=== PATIENT | female | born 1985 | race African-American/Black ===

== ENCOUNTER 2017-06-20 14:23 | Emergency (ER) | payer SELFPAY ==
[2017-06-20] MEDS ORDERED: NORMAL SALINE 1000 ML 1,000 ML IV PRN (15:32)
--- NOTE | 2017-06-20 15:33 | ER Document Report ---
ED Medical Screen (RME) - General Chief Complaint: Abdominal Pain Stated Complaint: BODY PAIN Time Seen by Provider: 06/20/17 14:39 Mode of Arrival: Wheelchair Information source: Patient TRAVEL OUTSIDE OF THE U.S. IN LAST 30 DAYS: No - HPI Patient complains to provider of: Abdominal Pain, low back pain, nausea and vomiting Notes: 06/20/17 15:32 Patient is a 31-year-old female presenting to the emergency room complaining of abdominal pain with lower back pain, states she was recently diagnosed with a urinary tract infection and completed a course of antibiotics, however missed several doses intermittently, she had some nausea and vomiting this morning as well Past Medical History Renal/ Medical History: Denies: Hx Peritoneal Dialysis Physical Exam - Vital signs Vitals: Temp Pulse Resp BP Pulse Ox 98 F 81 20 99/57 L 100 06/20/17 14:36 06/20/17 14:36 06/20/17 14:36 06/20/17 14:36 06/20/17 14:36 Course - Vital Signs Vital signs: Temp Pulse Resp BP Pulse Ox 98 F 81 20 99/57 L 100 06/20/17 14:36 06/20/17 14:36 06/20/17 14:36 06/20/17 14:36 06/20/17 14:36
--- NOTE | 2017-06-20 15:56 | ER Document Report ---
ED General - General Chief Complaint: Abdominal Pain Stated Complaint: BODY PAIN Time Seen by Provider: 06/20/17 14:39 Mode of Arrival: Medic Information source: Patient Notes: Patient presents to the emergency department with complaints of bilateral flank pain. Patient reports history of UTI approximately 1 month ago. She was treated with IV antibiotics and prescribed Cipro to go. Patient reports she did miss a few doses. She reports she felt better but this morning at work she started having pain again and vomited twice. She denies fever and diarrhea. Patient is requesting something to eat now. TRAVEL OUTSIDE OF THE U.S. IN LAST 30 DAYS: No - HPI Onset: This morning Onset/Duration: Sudden Quality of pain: Achy, Pressure Severity: Severe Pain Level: 4 Associated symptoms: Vomiting Exacerbated by: Denies Relieved by: Denies Similar symptoms previously: Yes Recently seen / treated by doctor: Yes Past Medical History - General Information source: Patient Last Menstrual Period: current - Social History Smoking Status: Current Every Day Smoker Cigarette use (# per day): Yes Chew tobacco use (# tins/day): No Frequency of alcohol use: Occasional Drug Abuse: None Occupation: [employer] Lives with: Family Family History: None Patient has suicidal ideation: No Patient has homicidal ideation: No - Medical History Medical History: Negative Renal/ Medical History: Denies: Hx Peritoneal Dialysis Past Surgical History: Reports: Hx Gynecologic Surgery - lt ovary removal, Hx Tonsillectomy - addenoids Review of Systems - Review of Systems Notes: Review HPI for review of systems., All other systems negative Physical Exam - Vital signs Vitals: Temp Pulse Resp BP Pulse Ox 98 F 81 20 99/57 L 100 06/20/17 14:36 06/20/17 14:36 06/20/17 14:36 06/20/17 14:36 06/20/17 14:36 - Notes Notes: PHYSICAL EXAMINATION: GENERAL: nontoxic looking HEAD: Atraumatic, normocephalic. EYES: Pupils equal round extraocular movements intact, sclera anicteric, conjunctiva are normal. ENT: nares patent, Moist mucous membranes. NECK: Normal range of motion, supple without lymphadenopathy LUNGS: CTAB and equal. No wheezes rales or rhonchi. HEART: Regular rate and rhythm without murmurs ABDOMEN: Soft, no tenderness. No guarding, no rebound BACK: Bilateral CVA tenderness EXTREMITIES: Normal range of motion, no pitting edema. No cyanosis. NEUROLOGICAL: Cranial nerves grossly intact. Normal sensory/motor exams. PSYCH: Normal mood, normal affect. SKIN: Warm, Dry, normal turgor, no rashes or lesions noted Course - Re-evaluation Re-evalutation: 06/20/17 17:08 Review of medical records notes the patient did have a visit for pyelonephritis on May 20. Her white count at that time was 24.4 today her wbc are 14.1. Will treat with toradol, iv rocephin, discharge with septra. Pt to be instructed on importance of fu for recheck and take all antibiotics. 06/20/17 17:49 Patient reports pain is gone but feeling little nauseated Zofran ordered - Vital Signs Vital signs: Temp Pulse Resp BP Pulse Ox 98 F 81 20 116/61 100 06/20/17 14:36 06/20/17 14:36 06/20/17 14:36 06/20/17 15:38 06/20/17 14:36 - Laboratory Result Diagrams: 06/20/17 15:40 06/20/17 15:40 Laboratory results interpreted by me: 06/20/17 06/20/17 06/20/17 15:40 15:40 15:45 WBC 14.1 H RDW 15.9 H Seg Neuts % (Manual) 93 H Lymphocytes % (Manual) 2 L Abs Neuts (Manual) 13.1 H Abs Lymphs (Manual) 0.3 L Chloride 108 H Urine Blood MODERATE H Urine Ascorbic Acid 20 H Discharge - Discharge Clinical Impression: Bilateral flank pain, Pyelonephritis Condition: Stable Disposition: HOME, SELF-CARE Instructions: Antinausea Medication ([facility]), Intravenous (IV) Fluids ([facility]), Pyelonephritis ([facility]), Rocephin ([facility]), Toradol Injection ([facility]), Trimethoprim- Sulfa ([facility]) Additional Instructions: *You have been evaluated for bilateral flank pain, history of pyelonephritis *Take medication as prescribed *Push fluids *Follow up with your primary care provider within one week *Monitor your temperature, take tylenol as indicated for pain *Return to ED for worsening condition, changes, needs, fever, increased pain, concerns Prescriptions: Sulfamethoxazole/Trimethoprim [Bactrim Ds Tablet] 1 each PO BID #10 tablet Forms: Return to Work
[2017-06-20 16:15] LABS: ALANINE AMINOTRANSFERASE 15 U/L (9-52); ALKALINE PHOSPHATASE 66 U/L (38-126); ANION GAP 10 (5-19); ASPARTATE AMINO TRANSFERASE 17 U/L (14-36); BILIRUBIN,DIRECT 0.3 mg/dL (0.0-0.4); BILIRUBIN,TOTAL 0.5 mg/dL (0.2-1.3); BLOOD UREA NITROGEN 11 mg/dL (7-20); CALCIUM 9.4 mg/dL (8.4-10.2); CARBON DIOXIDE 23 mmol/L (22-30); CHLORIDE 108 mmol/L (98-107); CREATININE RESULT 0.59 mg/dL (0.52-1.25); GLUCOSE 83 mg/dL (75-110); LIPASE 71.2 U/L (23-300); POTASSIUM 4.1 mmol/L (3.6-5.0); SODIUM 140.6 mmol/L (137-145); TOTAL PROTEIN 7.4 g/dL (6.3-8.2)
[2017-06-20 16:28] LABS: HEMATOCRIT 38.5 % (36.0-47.0); HEMOGLOBIN 12.6 g/dL (12.0-15.5); HGB HCT DIFFERENCE -0.7; MEAN CORPUSCULAR HEMOGLOBIN 27.3 pg (27.0-33.4); MEAN CORPUSCULAR HGB CONC 32.6 g/dL (32.0-36.0); MEAN CORPUSCULAR VOLUME 84 fl (80-97); RED BLOOD COUNT 4.61 10^6/uL (3.72-5.28); RED CELL DISTRIBUTION WIDTH 15.9 % (11.5-14.0); WHITE BLOOD COUNT 14.1 10^3/uL (4.0-10.5)
[2017-06-20 16:33] LABS: BASOPHILS % (MANUAL) 0 % (0-2); EOSINOPHILS % (MANUAL) 0 % (0-6); LYMPHOCYTES % (MANUAL) 2 % (13-45); TOTAL CELLS COUNTED 100
[2017-06-20 16:34] LABS: OVALOCYTES SLIGHT; POIKILOCYTOSIS SLIGHT; TARGET CELLS SLIGHT
[2017-06-20 16:35] LABS: ANISOCYTOSIS SLIGHT; HYPOCHROMASIA SLIGHT
[2017-06-20 16:50] LABS: APPEARANCE,URINE CLEAR; BILIRUBIN,URINE NEGATIVE (NEGATIVE); GLUCOSE, URINE NEGATIVE (NEGATIVE); KETONES,URINE NEGATIVE (NEGATIVE); LEUKOCYTE ESTERASE,URINE NEGATIVE (NEGATIVE); NITRITE,URINE NEGATIVE (NEGATIVE); PROTEIN,URINE NEGATIVE (NEGATIVE); URINE SPECIFIC GRAVITY 1.023; UROBILINOGEN,URINE NEGATIVE mg/dL (<2.0)
[2017-06-20] MEDS ORDERED: KETOROLAC TROMETHAMINE INJ/PF 30 MG/1 ML SDV IV ONE (17:05)
[2017-06-20] MEDS ORDERED: CEFTRIAXONE INJ 1000 MG VIAL IV ONE (17:05)
[2017-06-20] MEDS ORDERED: ONDANSETRON HCL INJ/PF 4 MG/2 ML SDV IV ONE (17:50)
[2017-06-20] MEDS ORDERED: ONDANSETRON ODT 4 MG TAB (6 TAB/DSPK) PO PRN (17:52)
[2017-06-20 18:25] VITALS: BP 112/64
== END 2017-06-20 18:20 | disposition home or self-care (01) ==
LOC: ER 14:23
DX: N12 Tubulo-interstitial nephritis, not specified as acute or chronic (principal); R10.9 Unspecified abdominal pain; R52 Pain, unspecified; F17.210 Nicotine dependence, cigarettes, uncomplicated
CPT/HCPCS: 99284; 96375; 96365; 36415; 87040; 87086; 83690; 84703; 85025; 80053; 81001; 83605; J1885; J0696; J2405; J7030

== ENCOUNTER 2017-08-28 12:44 | Emergency (ER) | payer MEDICAID ==
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
[2017-08-28] MEDS ORDERED: HYDROCODONE/ACETAMINOPHEN 5-325 MG TABLET PO ONE (13:56)
[2017-08-28] MEDS ORDERED: CYCLOBENZAPRINE HCL 10 MG TABLET PO ONE (13:56)
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
[2017-08-28 16:36] VITALS: BP 120/65
== END 2017-08-28 16:36 | disposition home or self-care (01) ==
LOC: ER 12:44
DX: O30.001 Twin pregnancy, unspecified number of placenta and unspecified number of amniotic sacs, first trimester (principal); S09.90XA Unspecified injury of head, initial encounter; R51 Headache; Y04.0XXA Assault by unarmed brawl or fight, initial encounter; Z3A.10 10 weeks gestation of pregnancy
CPT/HCPCS: 99284; 70150; 76801; J3490

== ENCOUNTER 2017-10-20 16:09 | Emergency (ER) | payer MEDICAID ==
--- NOTE | 2017-10-20 19:24 | ER Document Report ---
ED General - General Chief Complaint: Abdominal Pain Stated Complaint: ABDOMINAL PAIN/POST Time Seen by Provider: 10/20/17 19:23 Mode of Arrival: Ambulatory Information source: Patient Notes: This is a 32-year-old female who is 4 para 2 history of 1 miscarriage, 18 weeks who initiated a termination of yesterday at the [facility] in [place]. The nurse from the clinic states that the patient had a cervical prep with dilatation. She was supposed to stay overnight for a D&C today. The patient apparently had left last night with the plans of coming back this morning and the patient states she could not get a ride. I called the clinic today in the have confirmed that they are not back in the office until Thursday. TRAVEL OUTSIDE OF THE U.S. IN LAST 30 DAYS: No - HPI Onset: Just prior to arrival Onset/Duration: Gradual Quality of pain: No pain Severity: None Pain Level: Denies Associated symptoms: denies: Chest pain, Fever, Nausea, Vomiting, Shortness of breath Exacerbated by: Denies Relieved by: Denies Similar symptoms previously: Yes Recently seen / treated by doctor: Yes - Related Data Allergies/Adverse Reactions: Penicillins Allergy (Verified 10/20/17 16:12) Past Medical History - General Information source: Patient - Social History Smoking Status: Former Smoker Cigarette use (# per day): No Chew tobacco use (# tins/day): No Frequency of alcohol use: None Drug Abuse: None Lives with: Family Family History: None Patient has suicidal ideation: No Patient has homicidal ideation: No - Medical History Medical History: Negative Renal/ Medical History: Denies: Hx Peritoneal Dialysis Past Surgical History: Reports: Hx Gynecologic Surgery - lt ovary removal, Hx Tonsillectomy - addenoids Review of Systems - Review of Systems Constitutional: denies: Chills, Fever EENT: No symptoms reported Cardiovascular: No symptoms reported Respiratory: No symptoms reported Gastrointestinal: No symptoms reported Genitourinary: No symptoms reported Female Genitourinary: See HPI Musculoskeletal: No symptoms reported Skin: No symptoms reported Hematologic/Lymphatic: No symptoms reported Neurological/Psychological: No symptoms reported Physical Exam - Vital signs Vitals: Temp Pulse Resp BP Pulse Ox 98.4 F 77 18 114/60 98 10/20/17 16:21 10/20/17 16:21 10/20/17 16:21 10/20/17 16:21 10/20/17 16:21 Notes: Physical exam: GENERAL: 32-year-old female, alert and oriented 3, no acute distress HEAD: Atraumatic, normocephalic. EYES: Pupils equal round and reactive to light, extraocular movements intact, sclera anicteric, conjunctiva are normal. ENT: TMs normal, nares patent, oropharynx clear without exudates. Moist mucous membranes. NECK: Normal range of motion, supple without obvious mass or JVD. LUNGS: Breath sounds clear to auscultation bilaterally and equal. No wheezes rales or rhonchi. HEART: Regular rate and rhythm without murmurs, rubs or gallops. ABDOMEN: Soft, normoactive bowel sounds. No tenderness to palpation. No guarding, no rebound. No masses appreciated. Pelvic exam: Performed in the presence of a software support analyst (Fabi valero nurse): External genitalia normal, scant discharge in the vault which is slightly bloody. The office is closed, there is no significant adnexal mass, uterus consistent with 18 weeks gestation. EXTREMITIES: Normal range of motion, no pitting or edema. No clubbing or cyanosis. NEUROLOGICAL: Cranial nerves II through XII grossly intact. Normal speech, moving all extremities. PSYCH: Normal mood, normal affect. SKIN: Warm, Dry, normal turgor, no rashes or lesions noted. Course - Re-evaluation Re-evalutation: 10/20/17 23:59 I discussed case with the nurse at the [facility] in [facility] ([phone]). She confirmed that the patient was there to days ago and was supposed to be there this morning for a termination of . She stated that the next possible time a doctor can see her as Thursday. She was able to have the medical i d sales (Dr. Arthur) call me. He explained the process which is: The first day they put in 4 Laminarium for cervical dilatation and these are helped by strings. And then vaginal packing is put in for any discharge. The patient was supposed to stay in [place] that night and return to the clinic for a D and E after the cervix was dilated. Dr. Arthur stated that they make patients sign papers that they will stay in a hotel and that was the case with Ms. Fisher. Ms. Fisher stated that she had to leave because her ride needed to do something and was not able to bring her back to the clinic this morning. The patient was referred to the emergency room after calling the clinic. Dr. Arthur recommended removing the 4 laminaria and the vaginal packing. He stated that this usually does not break the membranes in the fetus would still be viable. Just before the pelvic exam, the patient had actually removed the laminaria and packing herself. The vaginal exam revealed some scant discharge but did not reveal any further packing or laminaria. An ultrasound was done which showed viable twin gestations with plenty of fluid around the babies. I discussed the case with the OB doctor online publisher here (Dr. Stefan Enriquez) who stated that given this presentation, it is likely that the babies are still viable and that the water has not broken. He also informed me that they do not do 18 week gestation D & Es here at this hospital. He also stated that he does not believe anyone in [place] did. In any event, there is no evidence of endometritis or ruptured membranes at this point. He was willing to see the patient in clinic I then called back Dr. Arthur ([phone]) and discussed case with him. He agreed that it sounded like the fetuses were still viable and that the membranes did not rupture at this point (given the presentation and findings). He stated that if the patient was still interested in a termination of , she would have to follow-up with [facility] which is the funding agency that is paying for the termination. He stated that the patient should call this agency before calling back to [facility] in [place]. He did state that she had approximately 1 week left for termination in [place]. I discussed this issue with the patient at length in the room and she appeared to understand. At the time of discharge, I have instructed the patient at the bedside with regards to return precautions and follow-up recommendations. The opportunity for questions was given. The patient has verbalized understanding of these instructions and the need for follow-up. - Vital Signs Vital signs: Temp Pulse Resp BP Pulse Ox 98.6 F 76 18 120/68 98 10/20/17 23:38 10/20/17 23:38 10/20/17 23:38 10/20/17 23:38 10/20/17 23:38 - Diagnostic Test Radiology reviewed: Image reviewed, Reports reviewed - OB shows viable twin pregnancies Critical Care Note - Critical Care Note Total time excluding time spent on procedures (mins): 60 Discharge - Discharge Clinical Impression: 18 weeks /twins Condition: Stable Disposition: HOME, SELF-CARE Additional Instructions: As discussed, the ultrasound showed viable twin pregnancies. I did speak to Dr. Arthur who is the OB medical i d sales at the [facility] He recommended to follow-up with [facility] first thing in the morning for referral back to the clinic. If you still are looking for a termination of , you legally have only one more week in [place]. Return to the emergency room for worsening pain, bleeding or fever. You could always follow-up with the woman's health clinic here at this hospital , but they do not do with late stage termination of pregnancies here. Continue current medicines.
[2017-10-20 21:23] LABS: BACTERIA (WET MOUNT) 4+ BACTERIA SEEN; RBCS (WET MOUNT) RARE RBCS SEEN; T.VAGINALIS (WET MOUNT) NO TRICHOMONAS SEEN; WBCS (WET MOUNT) 3+ WBCS SEEN; YEAST (WET MOUNT) YEAST SEEN
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
[2017-10-20 23:39] VITALS: BP 120/68
== END 2017-10-20 23:30 | disposition home or self-care (01) ==
LOC: ER 16:09
DX: O30.002 Twin pregnancy, unspecified number of placenta and unspecified number of amniotic sacs, second trimester (principal); Z3A.18 18 weeks gestation of pregnancy
CPT/HCPCS: 76810; 76815; 87210; 99285

== ENCOUNTER 2017-10-30 09:36 | Emergency (ER) | payer MEDICAID ==
--- NOTE | 2017-10-30 11:39 | ER Document Report ---
ED General - General Chief Complaint: Nausea/Vomiting/Diarrhea Stated Complaint: BACK/STOMACH PAIN Time Seen by Provider: 10/30/17 11:27 Mode of Arrival: Ambulatory Information source: Patient Notes: 32-year-old female who is 20 weeks presents with complaints of fever sore throat body aches of 2 day duration. pt notes that she has been having non productive cough. daughter has similar uri symptoms TRAVEL OUTSIDE OF THE [place] IN LAST 30 DAYS: No - HPI Onset: Other Onset/Duration: Persistent Quality of pain: Achy Severity: Mild Pain Level: 1 Associated symptoms: Body/muscle aches, Chills, Nonproductive cough, Fever, Nausea, Sore throat Exacerbated by: Denies Relieved by: Denies Similar symptoms previously: No Recently seen / treated by doctor: Yes - Related Data Allergies/Adverse Reactions: Penicillins Allergy (Verified 10/30/17 09:37) Past Medical History - Social History Smoking Status: Never Smoker Cigarette use (# per day): No Chew tobacco use (# tins/day): No Smoking Education Provided: No Frequency of alcohol use: None Drug Abuse: None Family History: None Patient has suicidal ideation: No Patient has homicidal ideation: No Renal/ Medical History: Denies: Hx Peritoneal Dialysis Past Surgical History: Reports: Hx Gynecologic Surgery - L ovary removal, Hx Tonsillectomy - addenoids Review of Systems - Review of Systems Notes: REVIEW OF SYSTEMS: CONSTITUTIONAL : Admits fevers chills EENT: Sore throat CARDIOVASCULAR: Denies chest pain. Denies palpitations or racing or irregular heart beat. Denies ankle edema. RESPIRATORY: Denies cough, cold, or chest congestion. Denies shortness of breath, difficulty breathing, or wheezing. GASTROINTESTINAL: Admits to nausea vomiting GENITOURINARY: Denies difficulty urinating, painful urination, burning, frequency, blood in urine, or discharge. FEMALE GENITOURINARY: Denies vaginal bleeding, heavy or abnormal periods, irregular periods. Denies vaginal discharge or odor. MUSCULOSKELETAL: Admits body aches SKIN: Denies rash, lesions or sores. HEMATOLOGIC : Denies easy bruising or bleeding. LYMPHATIC: Denies swollen, enlarged glands. NEUROLOGICAL: Denies confusion or altered mental status. Denies passing out or loss of consciousness. Denies dizziness or lightheadedness. Denies headache. Denies weakness or paralysis or loss of use of either side. Denies problems with gait or speech. Denies sensory loss, numbness, or tingling. Denies seizures. PSYCHIATRIC: Denies anxiety or stress. Denies depression, suicidal ideation, or homicidal ideation. ALL OTHER SYSTEMS REVIEWED AND NEGATIVE. PHYSICAL EXAMINATION: GENERAL: Well-appearing, well-nourished and in no acute distress. HEAD: Atraumatic, normocephalic. EYES: Pupils equal round and reactive to light, extraocular movements intact, conjunctiva are normal. ENT: Nares patent, oropharynx clear without exudates. Moist mucous membranes. NECK: Normal range of motion, supple without lymphadenopathy LUNGS: Breath sounds clear to auscultation bilaterally and equal. No wheezes rales or rhonchi. Dry cough HEART: Tachycardic upon arrival ABDOMEN: Soft, nontender, nondistended abdomen. No guarding, no rebound. No masses appreciated. Female : deferred Musculoskeletal: Normal range of motion, no pitting or edema. No cyanosis. NEUROLOGICAL: Cranial nerves grossly intact. Normal speech, normal gait. Normal sensory, motor exams PSYCH: Normal mood, normal affect. SKIN: Warm, Dry, normal turgor, no rashes or lesions noted. Dictation was performed using [employer] voice recognition software Physical Exam - Vital signs Vitals: Temp Pulse Resp BP Pulse Ox 98.7 F 127 H 20 134/72 H 97 10/30/17 09:41 10/30/17 09:41 10/30/17 09:41 10/30/17 09:41 10/30/17 09:41 Course - Re-evaluation Re-evalutation: 10/30/17 11:38 Patient's presentation is consistent with influenza, I did review previous chart where there was an attempt for miscarriage but the patient did not go through with it, she is denying any abdominal pain to me at this time, she does not have any signs of endometriosis, patient's symptoms are all URI based, at this time we do not have the capabilities to test for the flu, chest x -ray urinalysis pending I will treat the patient with Tamiflu risks and benefits have been explained 10/30/17 14:59 Patient's urinalysis did note some ketones she was noted to be slightly tachycardic upon arrival patient was given IV fluids heart rate is now 100, pt feels better After performing a Medical Screening Examination, I estimate there is LOW risk for ACUTE APPENDICITIS, BOWEL OBSTRUCTION, ACUTE CHOLECYSTITIS, PERFORATED DIVERTICULITIS, INCARCERATED HERNIA, PANCREATITIS, PELVIC INFLAMMATORY DISEASE, PERFORATED ULCER, ECTOPIC , or TUBO-OVARIAN ABSCESS, thus I consider the discharge disposition reasonable. Also, there is no evidence or peritonitis , sepsis, or toxicity. I have reevaluated this patient multiple times and no significant life threatening changes are noted. The patient and I have discussed the diagnosis and risks, and we agree with discharging home with close follow-up with the understanding that symptoms and presentations can change. We also discussed returning to the Emergency Department immediately if new or worsening symptoms occur. We have discussed the symptoms which are most concerning (e.g., bloody stool, fever, changing or worsening pain, vomiting) that necessitate immediate return. 10/30/17 15:07 - Vital Signs Vital signs: Temp Pulse Resp BP Pulse Ox 98.7 F 127 H 20 134/72 H 97 10/30/17 09:41 10/30/17 09:41 10/30/17 09:41 10/30/17 09:41 10/30/17 09:41 - Laboratory Laboratory results interpreted by me: 10/30/17 11:45 Urine Protein 100 H Urine Ketones 80 H Urine Urobilinogen 4.0 H Ur Leukocyte Esterase SMALL H Discharge - Discharge Clinical Impression: Nausea/vomiting in , Flu-like symptoms, Dehydration during Condition: Stable Disposition: HOME, SELF-CARE Instructions: Vomiting ([facility]) Additional Instructions: Follow up with your physician tomorrow for further care or return to the ED IMMEDIATELY if symptoms worsen or new concerns occur. If you cannot afford to follow up with your primary care physician a list of low cost clinics have been provided at the end of your discharge papers as well. Prescriptions: Metoclopramide HCl [Reglan 10 mg Tablet] 1 - 2 tab PO Q6 #25 tablet Oseltamivir Phosphate [Tamiflu 75 mg Capsule] 75 mg PO BID #10 capsule
[2017-10-30 12:03] LABS: APPEARANCE,URINE SLIGHTLY-CLOUDY; BILIRUBIN,URINE NEGATIVE (NEGATIVE); COLOR,URINE AMBER; GLUCOSE, URINE NEGATIVE (NEGATIVE); KETONES,URINE 80 mg/dL (NEGATIVE); LEUKOCYTE ESTERASE,URINE SMALL (NEGATIVE); NITRITE,URINE NEGATIVE (NEGATIVE); PROTEIN,URINE 100 mg/dL (NEGATIVE); URINE SPECIFIC GRAVITY 1.024
[2017-10-30] MEDS ORDERED: NORMAL SALINE 1000 ML 1,000 ML IV ONE (12:07)
--- NOTE | 2017-10-30 12:23 | RADIOLOGY REPORT (SQ) ---
EXAM DESCRIPTION: CHEST PA/LAT COMPLETED DATE/TIME: 10/30/2017 12:05 pm REASON FOR STUDY: fever cough COMPARISON: None. EXAM PARAMETERS: NUMBER OF VIEWS: two views TECHNIQUE: Digital Frontal and Lateral radiographic views of the chest acquired. RADIATION DOSE: NA LIMITATIONS: none FINDINGS: LUNGS AND PLEURA: No opacities, masses or pneumothorax. No pleural effusion. MEDIASTINUM AND HILAR STRUCTURES: No masses or contour abnormalities. HEART AND VASCULAR STRUCTURES: Heart normal size. No evidence for failure. BONES: No acute findings. HARDWARE: None in the chest. OTHER: No other significant finding. IMPRESSION: NO SIGNIFICANT RADIOGRAPHIC FINDING IN THE CHEST. TECHNICAL DOCUMENTATION: JOB ID: [id number] [employer]- All Rights Reserved
[2017-10-30 15:06] VITALS: BP 126/67
== END 2017-10-30 15:08 | disposition home or self-care (01) ==
LOC: ER 09:36
DX: O26.892 Other specified pregnancy related conditions, second trimester (principal); E86.0 Dehydration; R19.7 Diarrhea, unspecified; R50.9 Fever, unspecified; O21.8 Other vomiting complicating pregnancy; Z3A.20 20 weeks gestation of pregnancy; Z88.0 Allergy status to penicillin
CPT/HCPCS: 99283; 96360; 81001; 71046; J7030

== ENCOUNTER 2018-02-02 15:35 | Outpatient (CLI) | payer MEDICAID ==
[~2018-02-02 15:35] MED LIST: FERRIC CARBOXYMALTOSE 750 MG in NORMAL SALINE 250 ML IV PRN; NORMAL SALINE 250 ML IV PRN
[2018-02-02 16:18] VITALS: BP 118/71
== END 2018-02-02 16:56 | disposition home or self-care (01) ==
LOC: II 15:35 → 5TH 15:38 → II 16:56
PROVIDERS: ATTEND Internal Medicine
PROC: 3E033GC Introduction of Other Therapeutic Substance into Peripheral Vein, Percutaneous Approach (ICD-10-PCS; principal; 2018-02-02)
DX: D50.8 Other iron deficiency anemias (principal); K90.9 Intestinal malabsorption, unspecified
CPT/HCPCS: 96367; J7050; J1439; 96374

== ENCOUNTER 2018-02-10 16:27 | Inpatient (IN) | payer MEDICAID ==
[2018-02-10 17:10] LABS: APPEARANCE,URINE CLEAR; BILIRUBIN,URINE NEGATIVE (NEGATIVE); COLOR,URINE YELLOW; GLUCOSE, URINE NEGATIVE (NEGATIVE); KETONES,URINE NEGATIVE (NEGATIVE); LEUKOCYTE ESTERASE,URINE SMALL (NEGATIVE); NITRITE,URINE NEGATIVE (NEGATIVE); PROTEIN,URINE NEGATIVE (NEGATIVE); URINE SPECIFIC GRAVITY 1.011; UROBILINOGEN,URINE NEGATIVE mg/dL (<2.0)
[2018-02-10 17:35] LABS: URINE AMPHETAMINES SCREEN NEGATIVE; URINE BARBITURATES SCREEN NEGATIVE; URINE BENZODIAZEPINES SCREEN NEGATIVE; URINE COCAINE SCREEN NEGATIVE; URINE MARIJUANA (THC) SCREEN NEGATIVE; URINE METHADONE SCREEN NEGATIVE; URINE PHENCYCLIDINE SCREEN NEGATIVE
[2018-02-10 18:45] LABS: CHLAM PCR NOT DETECTED (NOT DETECT); GON PCR NOT DETECTED (NOT DETECT)
--- NOTE | 2018-02-10 19:33 | RADIOLOGY REPORT (SQ) ---
EXAM DESCRIPTION: U/S PROFILE W/O STRESS COMPLETED DATE/TIME: 02/10/2018 7:17 pm REASON FOR STUDY: nonreactive nst/twin gestation with demised baby B 34 weeks 2 days COMPARISON: 10/20/2017 TECHNIQUE: Limited wang-scale realtime and static images of the fetus to measure specified parameter s. LIMITATIONS: None. FINDINGS: HEART RATE: Fetus A: 157 Beats per minute. JONNY: Normal. BREATHING MOVEMENT: 2 points. MOVEMENT: 2 points. POSTURE AND TONE: 2 points. QUALITATIVE JONNY: 2 points. OTHER: No other significant finding. IMPRESSION: BIOPHYSICAL PROFILE: 04/28 for fetus A. demise of fetus B. measurements of fetus B suggest gestation of 27 weeks 1 day. Trimester of : Third - 28 weeks to delivery COMMENT: BREATHING MOVEMENTS: 2 POINTS: PRESENT 0 POINTS: ABSENT MOTION: 2 POINTS: PRESENT 0 POINTS: ABSENT TONE: 2 POINTS: PRESENT 0 POINTS: ABSENT AMNIOTIC FLUID VOLUME: 2 POINTS: LARGEST POCKET GREATER THAN 2 CM DEPTH. 0 POINTS: NO POCKET OF 2 CM. TECHNICAL DOCUMENTATION: JOB ID: [id number] [employer]- All Rights Reserved Reading location - IP/workstation name: [email or web address]
[2018-02-10] MEDS ORDERED: CITRIC ACID/SODIUM CITRATE ORAL SOLN 15 ML UDCUP ONE (20:01)
[2018-02-10] MEDS ORDERED: CEFAZOLIN 1 GM/D5W RTU 2 GM/100 ML RTUPB IV ONE (20:01)
[2018-02-10] MEDS ORDERED: MISOPROSTOL 0.2 MG TABLET ONE (20:06)
[2018-02-10] MEDS ORDERED: OXYTOCIN 10 UNIT/ML VIAL ONE (20:17)
[2018-02-10] MEDS ORDERED: FENTANYL CITRATE INJ/PF 100 MCG/2 ML AMPUL ONE ×3 (20:17→22:08)
[2018-02-10] MEDS ORDERED: EPHEDRINE SULFATE INJ 50 MG/1 ML AMPULE ONE (20:17)
[2018-02-10] MEDS ORDERED: ONDANSETRON HCL INJ/PF 4 MG/2 ML SDV ONE (20:17)
[2018-02-10] MEDS ORDERED: OXYTOCIN/NORMAL SALINE 20 UNIT/1,000 ML RTUINJ ONE (20:17)
[2018-02-10] MEDS ORDERED: MIDAZOLAM 2 MG/2 ML INJ ONE (20:17)
--- NOTE | 2018-02-10 20:24 | Admission Physical ---
Datetime Report Generated by CPN: 02/10/2018 20:24 CURRENT ADMISSION Chief Complaint: Sent from OB Office for Evaluation and Treatment - Please Specify Indication for Induction: Not Applicable Admit Impression : Obstetrical Complication Admit Plan: Observation/Evaluation ALLERGIES Medication Allergies: Yes Medication Allergies: Penicillins (02/10/2018) Latex: No Latex Allergies Food Allergies: N/A Environmental Allergies: N/A OBSTETRICAL HISTORY EDC: 03/22/2018 00:00 : 7 Para: 2 Term: 2 : 0 SAB: 2 IAB: 2 Ectopic: 0 Livin Cesareans: 0 VBACs: 0 Multiple Births: 0 Gestational Diabetes: No Rh Sensitization: No Incompetent Cervix: No COLE: No Infertility: No ART Treatment: No Uterine Anomaly: No IUGR: No Hx Previous C/S: No Macrosomia: No Hx Loss/Stillborn: No PIH: No Hx : Yes Placenta Previa/Abruption: No Depression/PP Depression: No PTL/PROM: No Post Hemorrhage: No Current Procedures: Ultrasound; NST; BPP Obstetrical History Comments: G1- SAB at 12 wks G2- 40 wk baby boy G3- EAB at 10 wks G4- EAB at 10 wks G5- 39.1 wk baby girl G6- SAB G7- Current pregancy with twins (Twin B demise) SEE RECORDS Alcohol: Yes Advised to Stop: No Alcohol Comments: Around 7 weeks. Marijuana : No Cocaine: No Other Illicit Drugs: No Cigarettes: Former Smoker. [id number] Cigarette Frequency: 5 - 10 per day Advised to Stop: Yes MEDICAL HISTORY Diabetes: No Blood Transfusion: No Pulmonary Disease (Asthma, TB): No Breast Disease: No Hypertension: No Window Shade Cloth Sewer Surgery: No Heart Disease: No Hosp/Surgery: Yes Autoimmune Disorder: No Anesthetic Complications: No Kidney Disease: No Abnormal Pap Smear: No Neuro/Epilepsy: No Psychiatric Disorders: No Other Medical Diseases: No Hepatitis/Liver Disease: No Significant Family History: No Varicosities/Phlebitis: No Trauma/Violence : No Thyroid Dysfunction: No Medical History Comments: Ovary removal - 2004 INFECTIOUS HISTORY Gonorrhea: No Genital Herpes: No Chlamydia: Yes Tuberculosis: No Syphilis: No Hepatitis: No HIV/AIDS Exposure: No Rash or Viral Illness: No HPV: No Infectious History Comments: Chlamydia 2014 PHYSICAL EXAM General: Normal HEENT: Normal Neurologic: Normal Thyroid: Normal Heart: Normal Lungs: Normal Breast: Deferred Back: Normal Abdomen: Normal Genitourinary Exam: Normal Extremities: Normal DTRs: Normal Pelvic Type: Adequate FETUS A EGA: 34.2 Admit Comment: pt is 34 weeks and 2 days with twins. one infant is not viable since last week. Pt had nonreactive NST and was sent to L_D for evaluation. She has a class two strip and a BPP was reported as an 8 but the tech said she was really stretching the criteria for this value. I discussed this with the pt and advised her I feel delivery is indicated because of a non reassurant evaluation and the loss of one twin prior. I recommend a for delivery as the best course of action given the totality of the situation. Pt wanted to go home but I advised her I could not keep her against her will but also did not recommend she leave. She has consented to a delivery. PLANS FOR LABOR AND DELIVERY Labor and Delivery: Other, Specify Pain Management: Natural; Medications; Epidural Other Pain Management Plans: Pt. unsure of pain management plans Feeding Preference: Both Circumcision: N/A INFORMED CONSENT Signature: with User ID: [email or web address]
[2018-02-10] MEDS ORDERED: PROPOFOL INJ 200 MG/20 ML VIAL IV ONE (20:29)
[2018-02-10 20:38] LABS: HEMATOCRIT 32.3 % (36.0-47.0); HEMOGLOBIN 10.2 g/dL (12.0-15.5); MEAN CORPUSCULAR HEMOGLOBIN 25.9 pg (27.0-33.4); MEAN CORPUSCULAR HGB CONC 31.5 g/dL (32.0-36.0); MEAN CORPUSCULAR VOLUME 82 fl (80-97); PLATELET COUNT 230 10^3/uL (150-450); RED BLOOD COUNT 3.94 10^6/uL (3.72-5.28); RED CELL DISTRIBUTION WIDTH 18.4 % (11.5-14.0); WHITE BLOOD COUNT 17.6 10^3/uL (4.0-10.5)
[2018-02-10 20:48] LABS: PROTHROMBIN TIME 12.6 SEC (11.4-15.4)
[2018-02-10 20:49] LABS: PARTIAL THROMBOPLASTIN TIME 31.5 SEC (23.5-35.8)
[2018-02-10 20:51] LABS: ABSOLUTE LYMPHOCYTES# (MANUAL) 0.7 10^3/uL (0.5-4.7); ABSOLUTE MONOCYTES # (MANUAL) 2.5 10^3/uL (0.1-1.4); ABSOLUTE NEUTROPHILS# (MANUAL) 14.3 10^3/uL (1.7-8.2); BASOPHILS % (MANUAL) 0 % (0-2); EOSINOPHILS % (MANUAL) 1 % (0-6); LYMPHOCYTES % (MANUAL) 4 % (13-45); MONOCYTES % (MANUAL) 14 % (3-13); SEGMENTED NEUTROPHILS % (MAN) 81 % (42-78); TOTAL CELLS COUNTED 100
[2018-02-10 20:52] LABS: ANISOCYTOSIS 1+; HYPOCHROMASIA SLIGHT; OVALOCYTES SLIGHT; PLATELET COMMENT ADEQUATE; POIKILOCYTOSIS SLIGHT; TOXIC GRANULATION SLIGHT
[2018-02-10] MEDS ORDERED: CLINDAMYCIN 900 MG/D5W RTU 50 ML IV ONE (20:54)
[2018-02-10] MEDS ORDERED: GENTAMICIN SULFATE INJ 80 MG/2 ML VIAL ONE (20:54)
[2018-02-10] MEDS ORDERED: TETRACAINE HCL/PF 20MG/2ML AMPULE (SPINAL) ONE (20:59)
[2018-02-10] MEDS ORDERED: LIDOCAINE 2% INJ-PF (20 MG/ML) 10 ML AMPUL ONE (21:12)
[2018-02-10] MEDS ORDERED: FENTANYL CITRATE INJ/PF 100 MCG/2 ML AMPUL IV PRN ×3 (21:29)
[2018-02-10] MEDS ORDERED: DIPHENHYDRAMINE HCL 50 MG/ML VIAL IV PRN (21:29)
[2018-02-10] MEDS ORDERED: NALBUPHINE HCL INJ 10 MG/1 ML AMPULE IM ONE (21:29)
[2018-02-10] MEDS ORDERED: MEPERIDINE HCL/PF INJ 25 MG/1 ML DISP.SYRIN IV PRN (21:29)
[2018-02-10] MEDS ORDERED: PROMETHAZINE HCL INJ 25 MG/1 ML VIAL IV PRN ×2 (21:29→21:51)
[2018-02-10] MEDS ORDERED: MORPHINE SULFATE 10 MG/ML INJ IM PRN (21:51)
[2018-02-10] MEDS ORDERED: ACETAMINOPHEN 325 MG TABLET PO PRN (21:51)
[2018-02-10] MEDS ORDERED: MEASLES,MUMPS&RUBELLA VACC/PF 0.5 ML VIAL SUBCUT PRN (21:51)
[2018-02-10] MEDS ORDERED: SIMETHICONE 80 MG TAB.CHEW PO PRN (21:51)
[2018-02-10] MEDS ORDERED: OXYTOCIN/NORMAL SALINE 20 UNIT/1,000 ML RTUINJ IV PRN (21:51)
[2018-02-10] MEDS ORDERED: DIPH/PERTUSS(ACELL)/TETANUS VAC/PF 0.5 ML SYR (>=10YO) IM PRN (21:51)
[2018-02-10] MEDS ORDERED: IBUPROFEN 800 MG TABLET PO ONE (22:00)
[2018-02-10] MEDS ORDERED: MEPERIDINE HCL/PF INJ 25 MG/1 ML DISP.SYRIN ONE (22:08)
--- NOTE | 2018-02-10 22:30 | OPERATIVE REPORT E ---
Operative Report NAME: GEORGE LOPEZ : 1985 AGE: 32Y DATE OF SURGERY: 02/10/2018 ROOM: LR200 PREOPERATIVE DIAGNOSES: 1. INTRAUTERINE AT 34 WEEKS 2 DAYS WITH TWINS. 2. TWIN B DEMISE. 3. NONREASSURING STRIP. POSTOPERATIVE DIAGNOSES: 1. INTRAUTERINE AT 34 WEEKS 2 DAYS WITH TWINS. 2. TWIN B DEMISE. 3. NONREASSURING STRIP. OPERATION: SURGEON: Robinson LINDSEY M.D. ANESTHESIA: Spinal. ESTIMATED BLOOD LOSS: Less than 600 mL. TISSUE REMOVED: Placenta. PROCEDURE: Patient was placed in a supine position, rolled to the right side, prepped and draped in sterile fashion. Pfannenstiel incision was made, extending through the subcutaneous tissue and fascia with sharp dissection. Fascia was divided. Rectus muscle bluntly and sharply divided. Parietal peritoneum was entered with sharp dissection. Uterus nicked in midline and extended bilaterally. A was then delivered through the uterine abdominal incision. Nose and mouth suctioned with bulb syringe. Cord was clamped. was passed from the table. The second twin demise was then delivered by converting from breech to vertex. The amniotic sac was ruptured and it was mostly blood. The second twin was then delivered. The cord was clamped and the was passed from the table. The placentas were manually extracted. The uterus closed in 2 layers using 0 Monocryl first in a running stitch, then a second Lembert stitch imbricating the first layer. A small amount of bleeding was noted in the midportion, which was controlled with 0 Vicryl. Hemostasis was noted. Fascia closed with 0 Vicryl. Skin was closed with subcutaneous absorbable david. Patient tolerated it well. Urine remained clear throughout the procedure. She was taken to recovery in good condition. DICTATING PHYSICIAN: Robinson LINDSEY M.D. [id number] PHY#: [id number] ID: [id number] JOB#: [id number] ACCT: [id number] cc:Robinson LINDSEY M.D. >
[2018-02-10] MEDS ORDERED: DIPHENHYDRAMINE HCL 50 MG/ML VIAL ONE (23:07)
[2018-02-10 23:36] LABS: HEMATOCRIT 34.4 % (36.0-47.0); HEMOGLOBIN 10.9 g/dL (12.0-15.5); MEAN CORPUSCULAR HEMOGLOBIN 26.2 pg (27.0-33.4); MEAN CORPUSCULAR HGB CONC 31.7 g/dL (32.0-36.0); MEAN CORPUSCULAR VOLUME 83 fl (80-97); PLATELET COUNT 224 10^3/uL (150-450); RED BLOOD COUNT 4.17 10^6/uL (3.72-5.28); WHITE BLOOD COUNT 18.8 10^3/uL (4.0-10.5)
[2018-02-10] MEDS ORDERED: OXYCODONE-ACETAMINOPHEN 5-325 MG TABLET ONE (23:51)
[2018-02-10 23:52] LABS: ABSOLUTE LYMPHOCYTES# (MANUAL) 0.9 10^3/uL (0.5-4.7); ABSOLUTE MONOCYTES # (MANUAL) 2.1 10^3/uL (0.1-1.4); ABSOLUTE NEUTROPHILS# (MANUAL) 15.6 10^3/uL (1.7-8.2); BASOPHILS % (MANUAL) 0 % (0-2); EOSINOPHILS % (MANUAL) 1 % (0-6); LYMPHOCYTES % (MANUAL) 5 % (13-45); MONOCYTES % (MANUAL) 11 % (3-13); SEGMENTED NEUTROPHILS % (MAN) 83 % (42-78); TOTAL CELLS COUNTED 100
[2018-02-10 23:53] LABS: ANISOCYTOSIS 1+; HYPOCHROMASIA SLIGHT; PLATELET COMMENT ADEQUATE; POIKILOCYTOSIS SLIGHT; TOXIC GRANULATION SLIGHT
[2018-02-11] MEDS: OXYCODONE-ACETAMINOPHEN 5-325 MG TABLET PO PRN ×5 (01:19→23:26)
[2018-02-11] MEDS ORDERED: IBUPROFEN 800 MG TABLET PO ONE (01:30)
[2018-02-11] MEDS ORDERED: RINGERS SOLUTION,LACTATED 1,000 ML IV PRN (01:42)
[2018-02-11] MEDS ORDERED: GENTAMICIN SULFATE INJ 80 MG/2 ML VIAL IV PRN (01:47)
--- NOTE | 2018-02-11 02:02 | Delivery Summary ---
Del Sum A-C Datetime Report Generated by CPN: 02/11/2018 02:02 DELIVERY PERSONNEL DELIVERY PERSONNEL: [id number] Delivery Doctor:: Mele Ortiz MD Anesthesiologist:: Josue Steele MD COMPUTER SYSTEMS HARDWARE ANALYST:: Richar Berman CRNA Labor and Delivery Nurse:: Eda Hernandez RNnavigating officer Nurse:: Maryellen Kay RN Criminal Investigator Customs:: Eda Hernandez RN Neonatal Nurse Practitioner:: MIRANDA Haile Nursery Nurse:: Sylvia Anaya RN Nursery Nurse:: Gris Alvarado RN Administrative Analyst/BUILDING EQUIPMENT INSPECTOR: Aliceflorencio Ferrarar, REFRIGERATOR REPAIRMAN Administrative Analyst/BUILDING EQUIPMENT INSPECTOR: Alice Ferrarar, REFRIGERATOR REPAIRMAN Additional Personnel: : Sylvia Shafer RN MATERNAL INFORMATION Delivery Anesthesia: Spinal Medications After Delivery: Pitocin Bolus-Please Comment; Pitocin Drip 20 Units/1000ml NSS Other Maternal Complications: demise twin B Provider Comments: twin B amniotic fluid mostly blood. demise appeared recent but twin b considerably smaller LABOR SUMMARY EDC: 03/22/2018 00:00 No. Babies in Womb: 2 Attempted: No Labor Anesthesia: Intrathecal LABOR INFORMATION Reason for Induction: Not Applicable Oxytocin: N/A Group B Beta Strep: unk Steroids Given: None Reason Steroids Not Administered: Not Applicable MEMBRANES Membranes Rupture Method: Artificial Rupture of Membranes: 02/10/2018 21:23 Length of Rupture (hr): 0.00 STAGES OF LABOR Stage 3 hr: 0 Stage 3 min: 2 VAGINAL DELIVERY Episiotomy: None Laceration #1: None Laceration Extension #1: N/A Laceration Repair: Not Applicable Sponge Count Correct: N/A Sharps Count Correct: N/A CSECTION DELIVERY Primary Indication: non-reassuring tracing Other Primary Indication: twin b featal demise CSection Urgency: Non-Scheduled CSection Incidence: Primary Labor: No Labor Elective: Nonelective CSection Incision: Lower Uterine Transverse BABY A INFORMATION Infant Delivery Date/Time: 02/10/2018 21:23 Method of Delivery: Born in Route : No : N/A Forceps: N/A Vacuum Extraction: N/A Shoulder Dystocia : No PRESENTATION/POSITION BABY A Presentation: Cephalic Cephalic Presentation: Vertex Breech Presentation: N/A PLACENTA INFORMATION BABY A Placenta Delivery Time : 02/10/2018 21:25 Placenta Method of Delivery: Spontaneous Placenta Status: Delivered SCORES BABY A Heart Rate 1 min: >100 bpm Resp Effort 1 min: Good Cry Reflex Irritability 1 min: Cough or Sneeze or Pulls Away Muscle Tone 1 min: Active Motion Color 1 min: Blue/Pale Resuscitation Effort 1 min: Tactile Stimulation SCORE 1 MIN: 8 Heart Rate 5 min: >100 bpm Resp Effort 5 min: Good Cry Reflex Irritability 5 min: Cough or Sneeze or Pulls Away Muscle Tone 5 min: Active Motion Color 5 min: Body [place], Extremities Blue Resuscitation Effort 5 min: Tactile Stimulation SCORE 5 MIN: 9 INFANT INFORMATION BABY A Gestational Age at Delivery: 34.2 Gestational Status: Late - 34- 36.6 Weeks Infant Outcome : Liveborn Infant Condition : Stable Sex: Female WEIGHT/LENGTH BABY A Infant Birthweight (gm): 1990 Weight (lb): 4 Infant Weight (oz): 6 Infant Length (in): 17.50 Length (cm): 44.45 CORD INFORMATION BABY A No. Cord Vessels: 3 Nuchal Cord : N/A Cord Blood Taken: Yes-For Storage (Mom's Blood type +) Suction: Mouth; Nose ASSESSMENT BABY A Skin to Skin: No BABY B INFORMATION Infant Delivery Date/Time: 02/10/2018 21:23 Method of Delivery : Born in Route : No : N/A Forceps : N/A Vacuum Extraction: N/A Shoulder Dystocia : No SHOULDER DYSTOCIA BABY B Infant Delivery Date/Time: 02/10/2018 21:23 PRESENTATION/POSITION BABY B Presentation : Cephalic Cephalic Position : N/A Breech Position: N/A ROM/PLACENTA INFO BABY B Rupture of Membranes: 02/10/2018 21:23 Length of Rupture (hr): 0.00 Placenta Delivery Time : 02/10/2018 21:25 Placenta Method of Delivery: Manual Removal Placental Status : Delivered SCORES BABY B Heart Rate 1 min: Absent Resp Effort 1 min: Absent Reflex Irritability 1 min: No Response Muscle Tone 1 min: Flaccid Color 1 min: Blue/Pale SCORE 1 MIN: 0 Heart Rate 5 min: Absent Resp Effort 5 min: Absent Reflex Irritability 5 min: No Response Muscle Tone 5 min: Flaccid Color 5 min: Blue/Pale SCORE 5 MIN: 0 INFORMATION BABY B Gestational Age at Delivery: 34.2 Gestational Status : Late - 34- 36.6 Weeks Outcome : Stillborn Sex : Female WEIGHT/LENGTH BABY B Birthweight (gm): 1180 Infant Weight (lb) : 2 Infant Weight (oz): 10 Length (in): 15.50 Infant Length (cm): 39.37 CORD INFORMATION BABY B Nuchal Cord : N/A Nuchal Cord- Other: tight umbilical cord stricture noted Cord Blood Taken : No-Annotate Banking/Donate Info : Demise, placenta to lab ASSESSMENT BABY B Skin to Skin: No SIGNATURES Signature: with User ID: [email or web address]
[2018-02-11] MEDS: CLINDAMYCIN 900 MG/D5W RTU 50 ML IV SCH ×3 (05:04→21:21)
[2018-02-11] MEDS: IBUPROFEN 800 MG TABLET PO SCH ×4 (06:00→23:26)
[2018-02-11] MEDS ORDERED: GENTAMICIN SULFATE 80 MG in DEXTROSE 5%-WATER 100 ML IV SCH (06:00)
[2018-02-11 06:42] LABS: HEMOGLOBIN 10.3 g/dL (12.0-15.5); MEAN CORPUSCULAR HEMOGLOBIN 26.5 pg (27.0-33.4); MEAN CORPUSCULAR HGB CONC 32.1 g/dL (32.0-36.0); MEAN CORPUSCULAR VOLUME 82 fl (80-97); PLATELET COUNT 194 10^3/uL (150-450); RED BLOOD COUNT 3.89 10^6/uL (3.72-5.28); RED CELL DISTRIBUTION WIDTH 18.7 % (11.5-14.0); WHITE BLOOD COUNT 16.9 10^3/uL (4.0-10.5)
--- NOTE | 2018-02-11 09:32 | PDOC PROGRESS REPORT ---
Subjective-OB Progress Note for:: 02/11/18 Subjective: s/p c/s day #1 Pt has not been up yet, is eating breakfast, pain well controlled, tran draining clear urine, pt states she is coping ok, has seen both babies, [place] [facility] [place]. Physical Exam (OB) Vital Signs: Temp Pulse Resp BP Pulse Ox 98.1 F 124 H 16 134/63 H 95 02/11/18 06:27 02/11/18 04:15 02/11/18 04:15 02/11/18 04:15 02/11/18 04:15 Intake & Output 02/10/18 02/11/18 02/12/18 06:59 06:59 06:59 Intake Total 1860 Output Total 1300 Balance 560 Weight 104.6 kg - Dressing Removed: No Incision: Dressing Closure Type: CDI - Lochia Lochia Amount: Small 10-25 ml Lochia Color: Rubra/Red - Abdomen Description: Soft, Round Hernia Present: No Fundal Description: Firm, Midline Fundal Height: u/u - u/2 Objective-Diagnostic Laboratory: 02/11/18 06:09 02/10/18 02/10/18 02/10/18 16:40 20:29 20:29 WBC 17.6 H RBC 3.94 Hgb 10.2 L Hct 32.3 L MCV 82 MCH 25.9 L MCHC 31.5 L RDW 18.4 H Plt Count 230 Seg Neutrophils % Not Reportable Lymphocytes % Not Reportable Monocytes % Not Reportable Eosinophils % Not Reportable Basophils % Not Reportable Absolute Neutrophils Not Reportable Absolute Lymphocytes Not Reportable Absolute Monocytes Not Reportable Absolute Eosinophils Not Reportable Absolute Basophils Not Reportable Urine Color YELLOW Urine Appearance CLEAR Urine pH 6.0 Ur Specific [place] 1.011 Urine Protein NEGATIVE Urine Glucose (UA) NEGATIVE Urine Ketones NEGATIVE Urine Blood NEGATIVE Urine Nitrite NEGATIVE Ur Leukocyte Esterase SMALL H Blood Type A POSITIVE Antibody Screen NEGATIVE 02/10/18 02/11/18 23:24 06:09 WBC 18.8 H 16.9 H RBC 4.17 3.89 Hgb 10.9 L 10.3 L Hct 34.4 L 32.0 L MCV 83 82 MCH 26.2 L 26.5 L MCHC 31.7 L 32.1 RDW 18.0 H 18.7 H Plt Count 224 194 Seg Neutrophils % Not Reportable Lymphocytes % Not Reportable Monocytes % Not Reportable Eosinophils % Not Reportable Basophils % Not Reportable Absolute Neutrophils Not Reportable Absolute Lymphocytes Not Reportable Absolute Monocytes Not Reportable Absolute Eosinophils Not Reportable Absolute Basophils Not Reportable Urine Color Urine Appearance Urine pH Ur Specific [place] Urine Protein Urine Glucose (UA) Urine Ketones Urine Blood Urine Nitrite Ur Leukocyte Esterase Blood Type Antibody Screen Assessment and Plan(PN) - Assessment and Plan (1) delivery delivered Is this a current diagnosis for this admission?: Yes Plan: routine post op care (2) IUFD (intrauterine ) Is this a current diagnosis for this admission?: Yes Plan: baby b demised emotional support provided (3) Twins, one liveborn and one stillborn Is this a current diagnosis for this admission?: Yes Plan: support provided - Time Spent with Patient Time with patient: Less than 15 minutes Critical Time spent with patient: Less than 15 minutes Medications reviewed and adjusted accordingly: Yes - Disposition Anticipated Discharge: Home Within: within 24 hours
[2018-02-11] MEDS: DOCUSATE SODIUM 100 MG CAPSULE PO SCH ×2 (09:38→18:39)
[2018-02-11] MEDS: PRENATAL VITAMIN W DHA CAPSULE PO SCH (09:38)
[2018-02-11] MEDS: FERROUS SULFATE 325 MG TABLET PO SCH (09:38)
[2018-02-11] MEDS ORDERED: FOLIC PO SCH (10:00)
[2018-02-11] MEDS ORDERED: PRENATAL VIT CALC76 PO SCH (10:00)
[2018-02-11] MEDS ORDERED: IRON PO SCH (10:00)
[2018-02-11] MEDS: GENTAMICIN SULFATE 80 MG in NORMAL SALINE 100 ML IV SCH ×2 (13:38→21:20)
[2018-02-12] MEDS: IBUPROFEN 800 MG TABLET PO SCH ×3 (05:20→18:45)
[2018-02-12] MEDS: CLINDAMYCIN 900 MG/D5W RTU 50 ML IV SCH ×2 (05:21→13:02)
[2018-02-12] MEDS: GENTAMICIN SULFATE 80 MG in NORMAL SALINE 100 ML IV SCH ×2 (05:21→13:02)
[2018-02-12] MEDS: PRENATAL VITAMIN W DHA CAPSULE PO SCH (09:21)
[2018-02-12] MEDS: DOCUSATE SODIUM 100 MG CAPSULE PO SCH ×2 (09:21→18:45)
[2018-02-12] MEDS: FERROUS SULFATE 325 MG TABLET PO SCH (09:22)
[2018-02-12] MEDS: OXYCODONE-ACETAMINOPHEN 5-325 MG TABLET PO PRN ×2 (10:25→19:52)
--- NOTE | 2018-02-12 10:48 | PDOC PROGRESS REPORT ---
Subjective-OB Progress Note for:: 02/12/18 Subjective: OOB in room, to shower, c/o of incisional pain now, asking for pain medication, hsb and child in room, feels like she needs to stay another day, + gas, voiding , eating well Physical Exam (OB) Vital Signs: Temp Pulse Resp BP Pulse Ox 97.5 F 83 18 118/70 100 02/12/18 08:00 02/12/18 08:00 02/12/18 08:00 02/12/18 08:00 02/12/18 08:00 Intake & Output 02/11/18 02/12/18 02/13/18 06:59 06:59 06:59 Intake Total 1860 720 Output Total 1300 400 Balance 560 320 Weight 104.6 kg - PIH/Pre-Eclampsia Clonus: Negative Headache: Absent Epigastric Pain: No Visual Changes: No - Dressing Removed: No Incision: Dressing Closure Type: CDI - Lochia Lochia Amount: Small 10-25 ml Lochia Color: Rubra/Red - Abdomen Description: Soft, Flat Hernia Present: No Fundal Description: Firm, Midline Fundal Height: u/u - u/2 Objective-Diagnostic Laboratory: 02/11/18 06:09 Assessment and Plan(PN) - Assessment and Plan (1) delivery delivered Is this a current diagnosis for this admission?: Yes (2) IUFD (intrauterine ) Is this a current diagnosis for this admission?: Yes (3) Twins, one liveborn and one stillborn Is this a current diagnosis for this admission?: Yes - Time Spent with Patient Time with patient: Less than 15 minutes Medications reviewed and adjusted accordingly: Yes - Disposition Anticipated Discharge: Home Within: within 24 hours
[2018-02-13] MEDS: IBUPROFEN 800 MG TABLET PO SCH ×2 (00:41→05:57)
--- NOTE | 2018-02-13 09:36 | PDOC DISCHARGE SUMMARY ---
Final Diagnosis Discharge Date: 02/13/18 - Final Diagnosis (1) delivery delivered Is this a current diagnosis for this admission?: Yes (2) IUFD (intrauterine ) Is this a current diagnosis for this admission?: Yes Discharge Data - Discharge Medication Prescriptions: Oxycodone HCl/Acetaminophen [Percocet 5-325 mg Tablet] 2 tab PO Q4HP PRN #30 tablet PRN Reason: Docusate Sodium [Colace 100 mg Capsule] 100 mg PO BID #60 capsule Ibuprofen [Motrin 800 mg Tablet] 800 mg PO Q6 #60 tablet Home Medications: Ferrous Sulfate [Iron] 325 mg PO DAILY 02/10/18 Vit,Calc76/Iron/Folic [Pnv 29-1 Tablet] 1 each PO DAILY 02/10/18 Docusate Sodium [Colace 100 mg Capsule] 100 mg PO BID #60 capsule 02/13/18 Ibuprofen [Motrin 800 mg Tablet] 800 mg PO Q6 #60 tablet 02/13/18 Oxycodone HCl/Acetaminophen [Percocet 5-325 mg Tablet] 2 tab PO Q4HP PRN #30 tablet 02/13/18 Gestational Age: 34.2 Reason(s) for Admission: Status, Twins, Stillborn Procedures: NST Intrapartum Procedure(s): : Low Cervical, Transverse - [place] Data Baby 1 Female at 1 minute: 8 at 5 minutes: 9 Weight: 1990 kg Baby 2 Female at 1 minute: 0 at 5 minutes: 0 Home with Mother: No Complications: Yes - iufd - Diagnosis Test Laboratory: Temp Pulse Resp BP Pulse Ox 98.4 F 100 16 122/74 99 02/13/18 08:04 02/13/18 08:04 02/13/18 08:04 02/13/18 08:04 02/13/18 08:04 02/10/18 02/10/18 02/10/18 16:40 20:29 23:24 RBC 3.94 4.17 Hgb 10.2 L 10.9 L Hct 32.3 L 34.4 L Urine Opiates Screen NEGATIVE 02/11/18 06:09 RBC 3.89 Hgb 10.3 L Hct 32.0 L Urine Opiates Screen - Discharge information/Instructions Discharge Activity: Activity As Tolerated, No Driving, No Lifting Over 10 Pounds , Pelvic Rest, No tub bath Discharge Diet: Regular Disposition: HOME, SELF-CARE Follow up with: [facility] in: 1, Weeks
[2018-02-13 10:00] VITALS: BP 115/64
[2018-02-13] MEDS: PRENATAL VITAMIN W DHA CAPSULE PO SCH (10:51)
[2018-02-13] MEDS: DOCUSATE SODIUM 100 MG CAPSULE PO SCH (10:52)
[2018-02-13] MEDS: FERROUS SULFATE 325 MG TABLET PO SCH (10:52)
== END 2018-02-13 10:50 | disposition home or self-care (01) | DRG 765 ==
LOC: LC 16:27 → LR 20:09 → 2N 02-11 00:02
PROVIDERS: ADMIT Obstetrics & Gynecology Gynecology; ATTEND Obstetrics & Gynecology Gynecology
PROC: 10D00Z1 Extraction of Products of Conception, Low, Open Approach (ICD-10-PCS; principal; 2018-02-10)
DX: O60.14X2 Preterm labor third trimester with preterm delivery third trimester, fetus 2 (principal); O36.4XX2 Maternal care for intrauterine death, fetus 2; O76 Abnormality in fetal heart rate and rhythm complicating labor and delivery; O69.1XX2 Labor and delivery complicated by cord around neck, with compression, fetus 2; O30.043 Twin pregnancy, dichorionic/diamniotic, third trimester; O99.334 Smoking (tobacco) complicating childbirth; F17.211 Nicotine dependence, cigarettes, in remission; Z3A.34 34 weeks gestation of pregnancy; Z37.3 Twins, one liveborn and one stillborn
CPT/HCPCS: 1961; 36415; 59025; 76819; 80307; 81005; 85025; 85027; 85610; 85730; 86592; 86850; 86900; 86901; 87491; 87591; 88307; 94799; J0690; J1200; J1580; J2175; J2250; J2270; J2405; J2590; J2704; J3010; J3490; J7120